=== PATIENT | male | born 1980 | race Caucasian/White ===

== ENCOUNTER 2018-03-02 01:41 | Inpatient (IN) ==
[2018-03-02] MEDS ORDERED: MORPHINE 4 MG/1 ML VIAL IV STA (02:36)
[2018-03-02] MEDS ORDERED: ONDANSETRON 4 MG/2 ML VIAL IV STA (02:36)
[2018-03-02] MEDS ORDERED: MORPHINE 4 MG/1 ML VIAL ONE (03:07)
[2018-03-02] MEDS ORDERED: ONDANSETRON 4 MG/2 ML VIAL ONE ×2 (03:07→17:55)
[2018-03-02] MEDS ORDERED: ONDANSETRON 4 MG/2 ML VIAL IV PRN ×2 (03:13→17:57)
[2018-03-02] MEDS: DEXTROSE 5% LACTATED RINGERS 1,000 ML IV SCH (04:30)
[2018-03-02] MEDS: PIPERACILLIN/TAZOBACTAM 3,375 MG in SODIUM CHLORIDE 0.9% 100 ML IV SCH ×3 (04:45→20:08)
[2018-03-02] MEDS: HYDROmorphone 2 MG/1 ML VIAL IV PRN ×2 (05:26→09:17)
[2018-03-02 08:05] LABS: Basophils % 0.3 % (0.0-0.8); Eosinophils # 0.3 10*3/uL (0.0-0.87); Eosinophils % 1.9 % (0.00-10.9); Hematocrit 42.3 VOL% (42.0-52.0); Hemoglobin 14.6 GM/DL (14.0-18.0); Immature Granulocytes % 0.6 %; Immature Granulocytes Absolute 0.08 #; Lymphocytes # 1.9 10*3/uL (1.4-4.0); Lymphocytes % 13.5 % (21.2-54.2); Mean Corpuscular HGB Conc 34.5 GM/DL (32-36); Mean Corpuscular Hemoglobin 29 PG (27-34); Mean Corpuscular Volume 84.3 FL (87-102); Mean Platelet Volume 10.3 FL (9.6-12.0); Monocytes # 1.4 10*3/uL (0.11-0.8); Monocytes % 9.7 % (1.7-12.7); Neutrophils # 10.5 10*3/uL (1.4-7.4); Platelet Count 244 T/CUMM (130-400); Red Blood Count 5.02 MC/CUMM (3.8-5.5); Red Cell Distribution Width 12.7 % (9.3-17.3); White Blood Count 14.1 T/CUMM (4-12)
[2018-03-02 08:35] LABS: Calcium 8.3 MG/DL (8.5-10.1); Osmolality,Calculated 275.5 MOS/KG (273-304); Potassium 4.5 MMOL/L (3.5-5.1)
[2018-03-02] MEDS: PANTOPRAZOLE 40 MG TABLET PO SCH (08:41)
[2018-03-02] MEDS ORDERED: HYDROmorphone 2 MG/1 ML VIAL IV PRN ×2 (09:07→17:57)
[2018-03-02] MEDS ORDERED: ALBUTEROL 2.5 MG/3 ML NEB RESP TX PRN ×2 (09:27→15:00)
[2018-03-02 12:54] LABS: Apearance,Urine CLEAR (Clear); Bilirubin,Urine Negative (Negative); Blood, Urine Small mg/dL (Negative); Glucose,Urine (UA) Negative (Negative); Ketones,Urine Negative (Negative); Mucus,Urine Occasional /LPF (Occasional); Nitrite,Urine Negative (Negative); Protein,Urine Negative; RBC,Urine 1 /HPF (0-4); Squamous Epithelial Cell,Urine Occasional /HPF (0-10); Urine Color Yellow (Yellow); Urine Specific Gravity 1.027 (1.001-1.035); Urine Urobilinogen < 2.0 EU/DL (0.2-1.0); WBC,Urine 1 /HPF (0-6)
[2018-03-02] MEDS ORDERED: DIAZEPAM 5 MG TABLET PO ONE (15:00)
[2018-03-02] MEDS ORDERED: FAMOTIDINE 20 MG TABLET PO ONE (15:00)
[2018-03-02] MEDS ORDERED: IPRATROPIUM 500 MCG/2.5 ML NEB RESP TX ONE (15:00)
[2018-03-02] MEDS ORDERED: ROPIVACAINE 0.5% 30 ML VIAL ONE (15:24)
[2018-03-02] MEDS ORDERED: oxyCODONE/ACETAMINOPHEN 5-325 MG TABLET PO PRN (17:47)
[2018-03-02] MEDS ORDERED: PROPOFOL 200 MG/20 ML VIAL IV ONE (17:55)
[2018-03-02] MEDS ORDERED: fentaNYL 100 MCG/2 ML VIAL ONE (17:55)
[2018-03-02] MEDS ORDERED: MIDAZOLAM 2 MG/2 ML VIAL ONE (17:55)
[2018-03-02] MEDS ORDERED: SEVOFLURANE 1 UNIT/15 MINUTE INH ONE (17:55)
[2018-03-02] MEDS ORDERED: MEPERIDINE 25 MG/1 ML VIAL IV PRN (17:57)
[2018-03-02] MEDS ORDERED: DEXTROSE 5% NACL 0.45% 1,000 ML IV SCH (19:30)
[2018-03-02] MEDS: oxyCODONE/ACETAMINOPHEN 5-325 MG TABLET PO PRN (20:07)
[2018-03-02] MEDS ORDERED: MONTELUKAST 10 MG TABLET PO SCH (21:00)
[2018-03-03] MEDS: oxyCODONE/ACETAMINOPHEN 5-325 MG TABLET PO PRN (01:11)
[2018-03-03] MEDS: PIPERACILLIN/TAZOBACTAM 3,375 MG in SODIUM CHLORIDE 0.9% 100 ML IV SCH (03:02)
[2018-03-03 04:43] LABS: Basophils # 0.1 10*3/uL (0.0-0.2); Basophils % 0.5 % (0.0-0.8); Eosinophils # 0.4 10*3/uL (0.0-0.87); Eosinophils % 4.1 % (0.00-10.9); Hematocrit 40.2 VOL% (42.0-52.0); Hemoglobin 13.6 GM/DL (14.0-18.0); Immature Granulocytes % 0.4 %; Immature Granulocytes Absolute 0.04 #; Lymphocytes # 2.4 10*3/uL (1.4-4.0); Lymphocytes % 22.5 % (21.2-54.2); Mean Corpuscular HGB Conc 33.8 GM/DL (32-36); Mean Corpuscular Hemoglobin 29 PG (27-34); Mean Platelet Volume 10.6 FL (9.6-12.0); Monocytes # 1.1 10*3/uL (0.11-0.8); Monocytes % 10.6 % (1.7-12.7); Neutrophils # 6.6 10*3/uL (1.4-7.4); Neutrophils % 61.9 % (38.7-73.9); Platelet Count 217 T/CUMM (130-400); Red Blood Count 4.62 MC/CUMM (3.8-5.5); Red Cell Distribution Width 12.7 % (9.3-17.3); White Blood Count 10.6 T/CUMM (4-12)
[2018-03-03 05:08] LABS: Calcium 8.2 MG/DL (8.5-10.1); Osmolality,Calculated 274.7 MOS/KG (273-304); Potassium 3.8 MMOL/L (3.5-5.1)
[2018-03-03] MEDS: DEXTROSE 5% LACTATED RINGERS 1,000 ML IV SCH (07:11)
[2018-03-03] MEDS: PANTOPRAZOLE 40 MG TABLET PO SCH (08:10)
[2018-03-03] MEDS ORDERED: CITALOPRAM 20 MG TABLET PO SCH (09:00)
[2018-03-03] MEDS ORDERED: VILANTEROL INH SCH (09:00)
[2018-03-03] MEDS ORDERED: FLUTICASONE INH SCH (09:00)
[2018-03-03 11:30] VITALS: BP 141/78
[2018-03-03] MEDS ORDERED: FAMOTIDINE 20 MG TABLET PO ONE (15:00)
== END 2018-03-03 12:40 | disposition home or self-care (01) | DRG 728 ==
LOC: N.ED 01:41 → N.EDINP 03:13 → N.3E 04:00
PROVIDERS: ADMIT Surgery; ATTEND Urology